=== PATIENT | male | born 1985 | race Caucasian/White ===

== ENCOUNTER 2017-09-14 03:26 | Emergency (ER) | payer SELFPAY ==
[2017-09-14] MEDS ORDERED: Ondansetron ODT 4 MG TAB ONE (03:41)
== END 2017-09-14 05:23 | disposition home or self-care (01) ==
LOC: ERS 03:26
DX: F11.90 Opioid use, unspecified, uncomplicated (principal); F31.9 Bipolar disorder, unspecified; F98.8 Other specified behavioral and emotional disorders with onset usually occurring in childhood and adolescence; F17.210 Nicotine dependence, cigarettes, uncomplicated; J45.909 Unspecified asthma, uncomplicated
CPT/HCPCS: 93005; 96360; 99406; Q0162

== ENCOUNTER 2018-09-28 20:35 | Emergency (ER) | payer SELFPAY | END 2018-09-28 22:37 | disposition home or self-care (01) | LOC: ERS 20:35 | DX: K04.7 Periapical abscess without sinus (principal) | CPT/HCPCS: 99282 ==

== ENCOUNTER 2018-10-01 07:45 | Emergency (ER) | payer SELFPAY ==
--- NOTE | 2018-10-02 11:38 | EKG ---
Test Reason : DRUG USE Blood Pressure : / mmHG Vent. Rate : 076 BPM Atrial Rate : 076 BPM P-R Int : 164 ms QRS Dur : 116 ms QT Int : 404 ms P-R-T Axes : 065 037 048 degrees QTc Int : 454 ms Normal sinus rhythm with sinus arrhythmia Incomplete right bundle branch block Confirmed by DR. Darcie SABILLON ([id number]) on 10/02/2018 11:38:08 AM Referred By: Confirmed By:DR. Darcie SABILLON
== END 2018-10-01 10:00 | disposition home or self-care (01) ==
LOC: ERS 07:45
DX: F15.10 Other stimulant abuse, uncomplicated (principal); F31.9 Bipolar disorder, unspecified; F17.210 Nicotine dependence, cigarettes, uncomplicated
CPT/HCPCS: 93005